=== PATIENT | male | born 1975 | race Native Hawaiian/Other Pacific Islander ===

== ENCOUNTER → 2019-03-09 | Outpatient (CLI) | payer BC | LOC: GMAL 10:33 | PROVIDERS: ATTEND Family Medicine | DX: Z00.01 Encounter for general adult medical examination with abnormal findings (principal) ==

== ENCOUNTER → 2020-03-19 | Outpatient (CLI) | payer BC | LOC: GMAL 10:51 | PROVIDERS: ATTEND Family Medicine | DX: Z00.01 Encounter for general adult medical examination with abnormal findings (principal); D51.8 Other vitamin B12 deficiency anemias; E55.9 Vitamin D deficiency, unspecified ==